=== PATIENT | female | born 1985 | race Caucasian/White ===

== ENCOUNTER 2017-03-19 10:32 | Emergency (ER) | payer MEDICAID ==
[~2017-03-19] VITALS: Ht 157.5 cm; Wt 85.4 kg
[2017-03-19 10:38] VITALS: BP 102/63
--- NOTE | 2017-03-19 10:46 | NUR ---
Patient to bed 11.
--- NOTE | 2017-03-19 11:02 | NUR ---
PATIENT PRESENTS TO ED WITH left lower back pain radiating left inguinal . PT STATES . DENIES N/V/D; SKIN IS PINK/WARM/DRY; AAOX4 WITH EVEN AND STEADY GAIT; LUNGS CLEAR BL; HR EVEN AND REGULAR; PT DENIES ANY FEVER, CP, SOB, OR COUGH AT THIS TIME; PATIENT STATES PAIN OF 8/10 AT THIS TIME; VSS; PATIENT POSITIONED FOR COMFORT; HOB ELEVATED; BEDRAILS UP X2; BED DOWN. ER MD MADE AWARE OF PT STATUS.
[2017-03-19] MEDS: ONDANSETRON 4 MG ODT PO ONE (11:26)
[2017-03-19] MEDS: FAMOTIDINE 20 MG TAB PO ONE (11:26)
[2017-03-19] MEDS: KETOROLAC 60 MG/2 ML VIAL IM ONE (11:27)
--- NOTE | 2017-03-19 11:27 | NUR ---
lab at bedside collecting blood sample----light technician is also at bedside waiting for lab
[2017-03-19 11:40] LABS: APPEARANCE,URINE HAZY (CLEAR); BILIRUBIN,URINE NEGATIVE (NEGATIVE); BLOOD, URINE TRACE-L (NEGATIVE); COLOR,URINE YELLOW (YELLOW); LEUKOCYTE ESTERASE ,URINE NEGATIVE (NEGATIVE); NITRITE, URINE NEGATIVE (NEGATIVE); UGLUCOSE NEGATIVE (NEGATIVE)
[2017-03-19 11:43] LABS: BASOPHILS # (AUTO) 0.5 K/uL (0.00-0.22); BASOPHILS % (AUTO) 4.3 % (0.0-2.0); EOSINOPHILS # (AUTO) 0.4 K/uL (0-0.4); HEMOGLOBIN 12.7 g/dL (12.0-16.0); LYMPHOCYTES # (AUTO) 2.2 K/uL (2.5-16.5); LYMPHOCYTES % (AUTO) 17.8 % (20.5-51.1); MEAN CORPUSCULAR HEMOGLOBIN 29 pg (27-31); MEAN CORPUSCULAR HGB CONC 33 g/dL (33-37); MEAN CORPUSCULAR VOLUME 87 fL (80-94); MONOCYTES # (AUTO) 0.9 K/uL (0.8-1.0); MONOCYTES % (AUTO) 6.9 % (1.7-9.3); NEUTROPHILS # (AUTO) 8.5 K/uL (1.8-7.7); PLATELET COUNT (AUTO) 318 K/uL (140-450); RED BLOOD CELL COUNT(AUTO) 4.37 MIL/uL (4.20-5.40); RED CELL DISTRIBUTION WIDTH 12.9 % (11.6-13.7); WHITE BLOOD COUNT (AUTO) 12.5 K/uL (4.8-10.8)
[2017-03-19 11:49] LABS: ANION GAP 6.5 (8-16); CARBON DIOXIDE 30.4 mmol/L (21-32); CREATININE 0.6 mg/dL (0.6-1.3); POTASSIUM 3.9 mmol/L (3.5-5.1)
[2017-03-19 11:50] LABS: RBC,URINE 0-5 (RARE) /HPF (0-5); WBC,URINE 0-5 (RARE) /HPF (0-5)
[2017-03-19 11:55] LABS: ALBUMIN 3.5 g/dL (3.4-5.0); TOTAL BILIRUBIN 0.2 mg/dL (0.0-1.0)
--- NOTE | 2017-03-19 12:00 | NUR ---
RETURNED FROM ULTRASOUND VIA WHEELCHAIR
[2017-03-19 12:31] VITALS: BP 124/83
--- NOTE | 2017-03-19 12:31 | NUR ---
Patient discharged with v/s stable. Written and verbal after care instructions given and explained. Patient alert, oriented and verbalized understanding of instructions. Ambulatory with steady gait. All questions addressed prior to discharge. ID band removed. Patient advised to follow up with PMD. Rx of NAPROSYN/PEPCID/ZOFRAN given. Patient educated on indication of medication including possible reaction and side effects. Opportunity to ask questions provided and answered.
[2017-03-21 06:23] LABS: CHLAMYDIA TRACHOMATIS AMP DNA Negative (Negative)
== END 2017-03-19 12:31 | disposition home or self-care (01) ==
LOC: MED 10:32
DX: K29.70 Gastritis, unspecified, without bleeding (principal)
CPT/HCPCS: 36415; 76856; 80053; 81001; 83690; 85025; 87086; 87491; 96372; 99285; J1885; Q0092; S0119

== ENCOUNTER 2022-05-06 14:58 | Emergency (ER) | payer MEDICAID ==
[~2022-05-06] VITALS: Ht 157.5 cm; Wt 86.6 kg
[2022-05-06 15:23] VITALS: BP 126/78
[2022-05-06 16:10] LABS: BASOPHILS % (AUTO) 0.6 % (0.0-2.0); EOSINOPHILS # (AUTO) 0.2 K/uL (0-0.4); EOSINOPHILS % (AUTO) 2.5 % (0.0-4.0); HEMATOCRIT 38.3 % (36-48); LYMPHOCYTES # (AUTO) 3.7 K/uL (2.5-16.5); LYMPHOCYTES % (AUTO) 46.8 % (20.5-51.1); MEAN CORPUSCULAR HEMOGLOBIN 29 pg (27-31); MEAN CORPUSCULAR HGB CONC 34 g/dL (33-37); MEAN CORPUSCULAR VOLUME 84.8 fL (80-94); MONOCYTES # (AUTO) 0.5 K/uL (0.8-1.0); NEUTROPHILS # (AUTO) 3.4 K/uL (1.8-7.7); NEUTROPHILS % (AUTO) 43.1 % (42.2-75.2); PLATELET COUNT (AUTO) 297 K/uL (140-450); RED BLOOD CELL COUNT(AUTO) 4.52 MIL/uL (4.20-5.40); RED CELL DISTRIBUTION WIDTH 13.8 % (11.6-13.7); WHITE BLOOD COUNT (AUTO) 7.8 K/uL (4.8-10.8)
[2022-05-06 16:34] LABS: ALBUMIN 4.1 g/dL (3.4-5.0); ANION GAP 13.8 (8-16); CARBON DIOXIDE 26.7 mmol/L (21-32); CREATININE 0.8 mg/dL (0.6-1.3); POTASSIUM 3.5 mmol/L (3.5-5.1); THYROID STIMULATING HORMONE 0.91 uIU/mL (0.34-3.74); TOTAL BILIRUBIN 0.2 mg/dL (0.0-1.0)
[2022-05-06] MEDS ORDERED: IBUP-1842 PO (17:08)
--- NOTE | 2022-05-06 17:16 | NUR ---
Patient discharged with v/s stable. Written and verbal after care instructions ABOUT THYROID NODULE given and explained. Patient alert, oriented and verbalized understanding of instructions. Ambulatory with steady gait. All questions addressed prior to discharge. ID band removed. Patient advised to follow up with PMD. Rx of MOTRIN given. Patient educated on indication of medication including possible reaction and side effects. Opportunity to ask questions provided and answered.
== END 2022-05-06 17:16 | disposition home or self-care (01) ==
LOC: MED 14:58
DX: E04.1 Nontoxic single thyroid nodule (principal); Z20.822 Contact with and (suspected) exposure to COVID-19; E03.9 Hypothyroidism, unspecified
CPT/HCPCS: 36415; 76536; 80053; 84443; 85025; 87426; 87804; 99284; Q0092

== ENCOUNTER 2022-07-12 16:15 | Emergency (ER) | payer OTHER, MEDICAID ==
[~2022-07-12] VITALS: Ht 157.5 cm; Wt 86.2 kg
[~2022-07-12 16:15] MED LIST: IBUP-1842 PO
[2022-07-12 16:27] VITALS: BP 118/74
--- NOTE | 2022-07-12 17:12 | NUR ---
PT AMB TO BED 5
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
[2022-07-12 17:33] LABS: BASOPHILS # (AUTO) 0.1 K/uL (0.00-0.22); BASOPHILS % (AUTO) 0.7 % (0.0-2.0); EOSINOPHILS # (AUTO) 0.5 K/uL (0-0.4); EOSINOPHILS % (AUTO) 4.2 % (0.0-4.0); HEMATOCRIT 38.4 % (36-48); HEMOGLOBIN 12.6 g/dL (12.0-16.0); LYMPHOCYTES # (AUTO) 3.8 K/uL (2.5-16.5); LYMPHOCYTES % (AUTO) 30.1 % (20.5-51.1); MEAN CORPUSCULAR HEMOGLOBIN 28 pg (27-31); MEAN CORPUSCULAR HGB CONC 33 g/dL (33-37); MEAN CORPUSCULAR VOLUME 86.4 fL (80-94); MONOCYTES # (AUTO) 0.9 K/uL (0.8-1.0); MONOCYTES % (AUTO) 7.1 % (1.7-9.3); NEUTROPHILS # (AUTO) 7.3 K/uL (1.8-7.7); NEUTROPHILS % (AUTO) 57.9 % (42.2-75.2); PLATELET COUNT (AUTO) 394 K/uL (140-450); RED BLOOD CELL COUNT(AUTO) 4.44 MIL/uL (4.20-5.40); RED CELL DISTRIBUTION WIDTH 14.7 % (11.6-13.7); WHITE BLOOD COUNT (AUTO) 12.5 K/uL (4.8-10.8)
[2022-07-12 18:00] LABS: ALBUMIN 3.7 g/dL (3.4-5.0); ANION GAP 12.4 (8-16); ASPARTATE AMINOTRANSFERASE 16 U/L (15-37); CARBON DIOXIDE 29.3 mmol/L (21-32); CHLORIDE 104 mmol/L (98-107); CREATININE 1.1 mg/dL (0.6-1.3); GFR ARICAN-AMERICAN 71 mL/min (>90); GLUCOSE 93 mg/dL (74-106); LIPASE 93 U/L (73-393); POTASSIUM 3.7 mmol/L (3.5-5.1); SODIUM SERUM 142 mmol/L (136-145); TOTAL BILIRUBIN 0.3 mg/dL (0.0-1.0); UREA NITROGEN, BLOOD 12 mg/dL (7-18)
--- NOTE | 2022-07-12 18:20 | NUR ---
PT TAKEN TO CT VIA RAYMOND
[2022-07-12] MEDS ORDERED: methocarbamoL 500 MG TAB PO STA (18:21)
[2022-07-12] MEDS ORDERED: KETOROLAC 15 MG/ML VIAL IVP ONE (18:25)
--- NOTE | 2022-07-12 18:40 | NUR ---
PT BROUGHT BACK VIA R[facility]MOND
--- NOTE | 2022-07-12 19:31 | NUR ---
REPORT GIVEN TO ROLY RN. TRANSFER OF CARE AT THIS TIME
[2022-07-12] MEDS ORDERED: METH-1681 PO (20:12)
[2022-07-12] MEDS ORDERED: LID5T TP (20:12)
[2022-07-12] MEDS ORDERED: IBUP-2213 PO (20:12)
--- NOTE | 2022-07-12 20:16 | NUR ---
Dr. Salmeron explained results and treatment plans.
[2022-07-12 20:36] VITALS: BP 118/74
--- NOTE | 2022-07-12 20:36 | NUR ---
Patient discharged with v/s stable. Written and verbal after care instructions given and explained. Patient alert, oriented and verbalized understanding of instructions. Ambulatory with steady gait. All questions addressed prior to discharge. ID band removed. Patient advised to follow up with PMD. Rx of IBUPROFEN, ROBAXIN, LIDOCAINE PATCH given. Patient educated on indication of medication including possible reaction and side effects. Opportunity to ask questions provided and answered.
== END 2022-07-12 20:36 | disposition home or self-care (01) ==
LOC: MED 16:15
DX: S13.4XXA Sprain of ligaments of cervical spine, initial encounter (principal); S20.219A Contusion of unspecified front wall of thorax, initial encounter; N83.201 Unspecified ovarian cyst, right side; E03.9 Hypothyroidism, unspecified; Z79.899 Other long term (current) drug therapy; Z79.1 Long term (current) use of non-steroidal anti-inflammatories (NSAID); V89.2XXA Person injured in unspecified motor-vehicle accident, traffic, initial encounter; Y93.89 Activity, other specified; Y92.410 Unspecified street and highway as the place of occurrence of the external cause; Y99.8 Other external cause status
CPT/HCPCS: 36415; 70450; 71260; 72125; 74177; 80053; 81025; 83690; 84484; 85025; 93005; 96374; 99285; J1885; Q9967

== ENCOUNTER 2022-07-30 20:49 | Emergency (ER) | payer MEDICAID, OTHER ==
[~2022-07-30] VITALS: Ht 157.5 cm; Wt 69.9 kg
[~2022-07-30 20:49] MED LIST changes: +IBUP-2213 PO; +LID5T TP; +METH-1681 PO
[2022-07-30 21:36] VITALS: BP 112/77
[2022-07-31] MEDS ORDERED: KETOROLAC 60 MG/2 ML VIAL IM ONE (00:10)
[2022-07-31] MEDS ORDERED: IBUP-2213 PO (00:18)
[2022-07-31] MEDS ORDERED: ACET-8905 PO (00:18)
[2022-07-31 00:37] VITALS: BP 112/77
--- NOTE | 2022-07-31 00:38 | NUR ---
Patient discharged with v/s stable. Written and verbal after care instructions given and explained. New rx ibuprofen. Patient verbalized understanding. Ambulatory with steady gait. All questions addressed prior to discharge. Advised to follow up with PMD.
--- NOTE | 2022-08-01 17:02 | NUR ---
LATE ENTRY. DISCREPANCY WITH ELBOW XRAY. DR AUSTIN CALLED AND SPOKE WITH PT DIRECTLY. PT IN A SLING AND NEEDS REPEAT XRAY IN 7-10DAYS.
== END 2022-07-31 00:38 | disposition home or self-care (01) ==
LOC: MED 20:49
DX: S50.01XA Contusion of right elbow, initial encounter (principal); E03.9 Hypothyroidism, unspecified; Z79.899 Other long term (current) drug therapy; W18.30XA Fall on same level, unspecified, initial encounter; Y93.89 Activity, other specified; Y92.89 Other specified places as the place of occurrence of the external cause; Y99.8 Other external cause status
CPT/HCPCS: 73080; 81025; 96372; 99283; J1885

== ENCOUNTER 2023-08-26 08:50 | Emergency (ER) | payer MEDICAID, OTHER ==
[~2023-08-26] VITALS: Ht 157.5 cm; Wt 89.8 kg
[~2023-08-26 08:50] MED LIST changes: +ACET-8905 PO
[2023-08-26 08:53] VITALS: BP 123/65; PULSE 78; RESP 16; TEMP 97.7; O2SAT 97
[2023-08-26 09:18] VITALS: BP 108/66; PULSE 80; RESP 16; O2SAT 99
[2023-08-26] MEDS: KETOROLAC 30 MG/ML VIAL IM ONE (09:26)
[2023-08-26] MEDS: CYCLOBENZAPRINE 10 MG TAB PO ONE (09:28)
[2023-08-26] MEDS: LIDOCAINE 5% 1 EA PATCH TP ONE (09:30)
[2023-08-26] MEDS ORDERED: CLIN300C52 PO (10:41)
== END 2023-08-26 10:52 | disposition home or self-care (01) ==
LOC: MED 08:50
DX: S46.912A Strain of unspecified muscle, fascia and tendon at shoulder and upper arm level, left arm, initial encounter (principal); M54.2 Cervicalgia; E03.9 Hypothyroidism, unspecified; Z79.1 Long term (current) use of non-steroidal anti-inflammatories (NSAID); Z79.899 Other long term (current) drug therapy; X58.XXXA Exposure to other specified factors, initial encounter; Y93.89 Activity, other specified; Y92.89 Other specified places as the place of occurrence of the external cause; Y99.8 Other external cause status
CPT/HCPCS: 70490; 81025; 96372; 99285; J1885